=== PATIENT | male | born 1995 ===

== ENCOUNTER 2018-11-20 17:45 | Emergency (ER) | payer OTHER ==
[~2018-11-20] VITALS: Ht 170.2 cm; Wt 70.3 kg
[2018-11-20 17:53] VITALS: BP 121/72
== END 2018-11-20 19:30 | disposition left against medical advice (07) ==
LOC: ER 17:51
DX: M79.631 Pain in right forearm (principal); Z53.21 Procedure and treatment not carried out due to patient leaving prior to being seen by health care provider